=== PATIENT | female | born 1940 | race Caucasian/White ===

== ENCOUNTER 2018-07-29 05:20 | Emergency (ER) | payer OTHER ==
[2018-07-29] MEDS: IPRATROPIUM (NEB) 0.5 MG/2.5 ML AMP INH (07:19)
[2018-07-29] MEDS: ALBUTEROL 0.5% (NEB) 2.5 MG/0.5 ML AMP INH (07:19)
[2018-07-29] MEDS: METHYLPREDNISOLONE 125 MG INJ IV (07:24)
[2018-07-29 07:29] LABS: ADD MAN DIFF? NO
[2018-07-29 07:31] LABS: ABNORMAL IP MESSAGE 1; BASOPHIL # 0.1 10^3/ul (0.0-0.1); BASOPHILS % 0.3 % (0.0-2.0); HEMATOCRIT 34.8 % (37.0-47.0); HEMOGLOBIN 11.6 g/dl (12.0-16.0); LYMPHOCYTES # 1.6 10^3/ul (0.8-2.9); LYMPHOCYTES % 9.9 % (15.0-51.0); MEAN CORPUSCULAR HEMOGLOBIN 29.7 pg (29.0-33.0); MEAN CORPUSCULAR HGB CONC 33.3 g/dl (32.0-37.0); MEAN PLATELET VOLUME 9.3 fl (7.4-10.4); MONOCYTE # 2.1 10^3/ul (0.3-0.9); MONOCYTES % 13.2 % (0.0-11.0); NEUTROPHILS % 75.8 % (39.0-77.0); PLATELET COUNT 296 10^3/UL (140-415); RED BLOOD COUNT 3.91 10^6/ul (4.20-5.40); RED CELL DISTRIBUTION WIDTH 13.3 % (11.5-14.5)
[2018-07-29 07:31] LABS: WHITE BLOOD COUNT 15.8 10^3/ul (4.8-10.8)
[2018-07-29 07:34] LABS: POSITIVE DIFF @See below
[2018-07-29 07:55] LABS: INR 5.85; PROTIME 52.3 Sec (11.9-14.9); PT RATIO 4.1
[2018-07-29 08:04] LABS: TROPONIN-I < 0.012 ng/ml (0.000-0.120)
[2018-07-29 09:29] LABS: ADD UMIC YES; UR ASCORBIC ACID NEGATIVE (NEGATIVE); UR BACTERIA FEW /HPF (NONE SEEN); UR BILIRUBIN (Dip) NEGATIVE (NEGATIVE); UR BLOOD (Dip) 3+ mg/dL (NEGATIVE); UR CLARITY CLOUDY (CLEAR); UR COLOR AMBER (YELLOW); UR GLUCOSE (Dip) NEGATIVE (NEGATIVE); UR KETONES (Dip) TRACE mg/dL (NEGATIVE); UR LEUKOCYTE ESTERASE (Dip) 3+ Leu/ul (NEGATIVE); UR MUCUS MANY /HPF (NONE SEEN); UR NITRITE (Dip) POSITIVE (NEGATIVE); UR RBC 119 /HPF (0-5); UR SPECIFIC GRAVITY (Dip) 1.019 (1.003-1.030); UR SQUAMOUS EPITHELIAL CELL FEW /HPF (FEW); UR TOTAL PROTEIN (Dip) 2+ mg/dl (NEGATIVE); UR UROBILINOGEN (Dip) NEGATIVE (NEGATIVE); UR WBC 38 /HPF (0-5)
[2018-07-29 09:50] LABS: ANION GAP 12 (5-13); BLOOD UREA NITROGEN 17 mg/dl (7-20); CALCIUM 8.7 mg/dl (8.4-10.2); CARBON DIOXIDE 24 mmol/L (21-31); CHLORIDE 99 mmol/L (97-110); CREATININE 0.69 mg/dl (0.44-1.00); GLUCOSE 194 mg/dl (70-220); POTASSIUM 3.9 mmol/L (3.5-5.1); SODIUM 135 mmol/L (135-144)
[2018-07-29] MEDS: CEFTRIAXONE 1 GM/50 ML (PMX) 50 ML IVPB (10:04)
== END 2018-07-29 10:27 | disposition short-term general hospital (02) ==
LOC: E/R 05:20
DX: J45.901 Unspecified asthma with (acute) exacerbation (principal); N30.01 Acute cystitis with hematuria; H60.502 Unspecified acute noninfective otitis externa, left ear; R79.1 Abnormal coagulation profile; Z86.79 Personal history of other diseases of the circulatory system
CPT/HCPCS: 71045; 80048; 81001; 84484; 85025; 85610; 87086; 93005; 94644; 96374; 96375; 99285-25